=== PATIENT | male | born 1965 | race Caucasian/White ===

== ENCOUNTER 2020-04-23 08:03 | Emergency (ER) | payer BC ==
[~2020-04-23] VITALS: Ht 170.2 cm; Wt 72.6 kg
[2020-04-23 08:48] VITALS: BP 125/86
== END 2020-04-23 08:49 | disposition home or self-care (01) ==
LOC: M.ERS 08:03
DX: J00 Acute nasopharyngitis [common cold] (principal); Z20.828 Contact with and (suspected) exposure to other viral communicable diseases; F17.210 Nicotine dependence, cigarettes, uncomplicated

== ENCOUNTER 2020-06-14 07:52 | Emergency (ER) | payer BC ==
[~2020-06-14] VITALS: Ht 170.2 cm; Wt 73.5 kg
[2020-06-14] MEDS ORDERED: TESSALON PERLE100 M1 PO (08:46)
[2020-06-14 08:59] VITALS: BP 144/78
== END 2020-06-14 08:59 | disposition home or self-care (01) ==
LOC: M.ERS 07:52
DX: B34.9 Viral infection, unspecified (principal); Z20.828 Contact with and (suspected) exposure to other viral communicable diseases; F17.210 Nicotine dependence, cigarettes, uncomplicated